=== PATIENT | male | born 1965 | race Hispanic/Latino ===

== ENCOUNTER → 2019-05-09 | Outpatient (CLI) | payer BC ==
--- NOTE | 2019-05-09 20:42 | Diagnostic Imaging Report ---
TECHNIQUE: Magnetic resonance imaging of the RIGHT HIP was performed WITHOUT injected contrast. HISTORY: Right hip pain COMPARISON: None available. FINDINGS: Bone: Heterogeneous bone marrow signal throughout the pelvis and proximal femurs. Bone marrow edema involving the bilateral femoral head neck junction extending across the physis scar. This is most prominent involving the lateral aspect of the right junction. The typical location of osteonecrosis within the femoral epiphysis is not present. Femoroacetabular Joint: Joint effusion. Acetabular labrum: Fraying of the labrum. Articular Cartilage: Partial-thickness cartilage loss Muscle and tendons: The gluteal tendons on the greater trochanter are intact. The iliopsoas tendon intact. The hamstring origins intact. Soft tissues: Otherwise unremarkable. IMPRESSION: Stress/insufficiency edema across the bilateral femoral head neck junction, greater on the right involving the lateral aspect. (Atypical appearance and location) No osteonecrosis within the expected location at the femoral epiphysis. Signed by: Dr. Mohinder Alcantara M.D. on 05/09/2019 8:38 PM
== END ==
LOC: MRI 13:16 → EDSEX 13:16
PROVIDERS: ATTEND Specialist
DX: M87.851 Other osteonecrosis, right femur (principal)

== ENCOUNTER → 2019-06-05 | Outpatient (CLI) | payer BC ==
--- NOTE | 2019-06-05 17:17 | Diagnostic Imaging Report ---
Bone Scan, three-phase Reason for exam: Right hip pain x 4 months Radiopharmaceutical: Tc-99m MDP 27.5 mCi IV RAC Comparison: MRI right hip 04/10/2019 Following intravenous administration of the radiopharmaceutical, dynamic flow images of the hips and blood pool images of the hips and knees followed by delayed total body and selected spot images were obtained. Flow and blood pool images show symmetric distribution of tracer activity to the bilateral hips and knees without abnormal focal uptake of tracer. The delayed images show decreased tracer activity in the right femoral head with increased tracer at the femoral head/neck junction and diffusely increased tracer in the hip. The left hip shows minimally decreased tracer activity in the left femoral head with mildly increased tracer at the femoral head/neck junction and less surrounding hyperemia in the hip compared to the right hip. Degenerative changes are seen in the mid thoracic and lower lumbar spine as well as in the knees and ankles, right ankle changes greater than in the left ankle. No abnormal accumulation of tracer is seen in the soft tissues or urinary tract. 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 Changes are more acute in the right hip compared to the left. Signed by: Dr. Sabra Kelley M.D. on 06/05/2019 5:13 PM
== END ==
LOC: NM 08:15
PROVIDERS: ATTEND Specialist
DX: M87.851 Other osteonecrosis, right femur (principal)
CPT/HCPCS: 78306; A9503

== ENCOUNTER 2019-07-29 08:00 | Observation (INO) | payer BC, OTHER ==
[2019-07-25 11:58] LABS: BASOPHILS % 0.1 % (0.0-1.0); EOSINOPHILS # (AUTO) 0.2 (0.0-0.4); EOSINOPHILS % 3.3 % (0.0-6.0); HEMATOCRIT 38.8 % (38.2-49.6); HEMOGLOBIN 12.9 g/dL (14.0-18.0); LYMPHOCYTES # (AUTO) 2.7 (1.0-3.2); LYMPHOCYTES % 40.7 % (18.0-39.1); MEAN CORPUSCULAR HEMOGLOBIN 28.9 pg (28-32); MEAN CORPUSCULAR HGB CONC 33.2 g/dL (31-35); MONOCYTES # (AUTO) 0.9 (0.2-0.8); MONOCYTES % 13.9 % (4.4-11.3); NEUTROPHILS # (AUTO) 2.8 (2.1-6.9); NEUTROPHILS % 41.6 % (38.7-80.0); PLATELET COUNT 253 x10e3/uL (140-360); RED BLOOD COUNT 4.46 x10e6/uL (4.3-5.7); RED CELL DISTRIBUTION WIDTH 13.2 % (11.7-14.4)
[~2019-07-29] VITALS: Ht 170.2 cm; Wt 113.9 kg
[2019-07-29] MEDS ORDERED: ACETAMINOPHEN325 M1 PO (08:26)
[2019-07-29] MEDS ORDERED: ULTRAM50 MG PO (08:26)
[2019-07-29] MEDS ORDERED: CEFAZOLIN SOD 1 GM/NS 50ML 100 ML IV ONE (08:35)
[2019-07-29] MEDS ORDERED: CELECOXIB 200 MG CAP ONE (09:12)
[2019-07-29] MEDS ORDERED: DEXAMETHASONE SOD PHOS 10 MG/1 ML VIAL ONE (09:12)
[2019-07-29] MEDS ORDERED: GABAPENTIN 300 MG CAP ONE (09:13)
[2019-07-29] MEDS ORDERED: BUPIVACAINE 7.5MG/ML /DEXTROSE 82.5MG/ML 2 ML AMP INJ ONE (09:22)
[2019-07-29] MEDS ORDERED: VANCOMYCIN HCL 1,000 MG ONE (09:46)
[2019-07-29] MEDS ORDERED: BACITRACIN 50,000 UNIT VIAL ONE (09:46)
[2019-07-29] MEDS ORDERED: TRANEXAMIC ACID 1,000 MG/10 ML ML ONE (09:47)
[2019-07-29] MEDS ORDERED: SODIUM CHLORIDE 0.9% 500ML 500 ML ONE (09:47)
[2019-07-29] MEDS ORDERED: HYDROCODONE/APAP 5MG-325MG TAB PO PRN (11:15)
[2019-07-29] MEDS ORDERED: DIPHENHYDRAMINE HCL INJ 50 MG/ML VIAL IV PRN (11:15)
[2019-07-29] MEDS ORDERED: ONDANSETRON HCL INJ 2MG/ML 2ML 2 MG/ML VIAL IV PRN (11:15)
[2019-07-29] MEDS ORDERED: ACETAMINOPHEN 650 MG SUPP PR PRN (11:15)
[2019-07-29] MEDS ORDERED: SODIUM CHLORIDE 0.9% 1000ML 1,000 ML IV SCH (11:15)
[2019-07-29] MEDS ORDERED: DOCUSATE SODIUM 100 MG CAP PO PRN (11:15)
[2019-07-29 13:40] VITALS: BP 104/75
--- NOTE | 2019-07-29 13:42 | NUR ---
PATIENT ARRIVED TO UNIT AT APPROXIMATELY 1330. AAOX3. ACYANOTIC. RESTING IN BED WITH ABDUCTION PILLOW BETWEEN LOWER EXTREMITIES. NO DISTRESS NOTED. CALL LIGHT IN REACH. SIDE RAILS UP X2. BED LOW. PATIENT DENIES PAIN. DRESSING TO RIGHT POSTERIOR SIDE OF HIP CLEAN, DRY, AND INTACT.
[2019-07-29 13:58] VITALS: BP 104/75
--- NOTE | 2019-07-29 14:03 | Diagnostic Imaging Report ---
EXAMINATION: PELVIS AP 1-2 VIEWS INDICATION: Postoperative COMPARISON: None FINDINGS: Portable AP view of the pelvis demonstrates immediate postoperative findings of right total hip replacement. Alignment appears anatomic. No unexpected fracture. Small amount of subcutaneous cutaneous soft tissue emphysema. Surgical skin sayda in place. Mild degenerative changes of the enterprise left hip joint. IMPRESSION: Anatomic alignment status post right total hip placement. Signed by: Chidi Chris MD on 07/29/2019 2:00 PM
[2019-07-29] MEDS ORDERED: ETOMIDATE 2 MG/ML 10 ML INJ IV ONE (14:54)
[2019-07-29] MEDS ORDERED: PROPOFOL IV EMULSION 10 MG/ML 20 ML VIAL ONE (14:54)
[2019-07-29] MEDS ORDERED: DEXAMETHASONE SOD PHOS INJ 4 MG/ML VIAL ONE (14:54)
[2019-07-29] MEDS ORDERED: ONDANSETRON HCL INJ 2MG/ML 2ML 2 MG/ML VIAL ONE (14:54)
[2019-07-29] MEDS: HYDROCODONE/APAP 7.5MG-325MG 1 EA TAB PO PRN ×2 (14:59→23:20)
[2019-07-29] MEDS ORDERED: ACETAMINOPHEN 1000 MG/100 ML IV PRN (15:00)
--- NOTE | 2019-07-29 15:10 | NUR ---
DR WATKINS OFFICE PREARRANGED FOLLOWING DISCHARGE PLAN OF: HOME [address] [facility], [address] HOME HEALTH WITH HOME CARE PROVIDERS CONFIRMED WITH [id number] DME 3 IN ONE COMMODE. AND ROLLING WALKER WITH WHEELS. PROVIDED BY [employer] [phone] KEISHA SIGNED AND ON CHART COPY LEFT WITH PATIENT GAVE CARD FOR QUESTIONS AND OR CONCERNS.
--- NOTE | 2019-07-29 15:35 | Operative Report ---
DATE OF PROCEDURE: 07/29/2019 SURGEON: Mark Horowitz MD DIE DRAWING CHECKER: Brian Herring, certified PA. PREOPERATIVE DIAGNOSIS: Avascular necrosis, right hip. POSTOPERATIVE DIAGNOSIS: Avascular necrosis, right hip. PROCEDURE: Right total hip arthroplasty, * added complexity secondary to BMI greater than 41. INDICATIONS: The patient is a 53-year-old gentleman, who has severe pain in his left hip. Clinic exam, x-rays and MRI are consistent with avascular necrosis. Treatment options have been discussed at length. We plan on a right total hip replacement. This was somewhat delayed because of the recent viral pandemic. He is anxious to proceed. We have gone over the implants, hospital stay, and recovery. He states he is ready to proceed. DESCRIPTION OF PROCEDURE: The patient was brought to the operating room and given a spinal anesthetic. He was positioned in the left lateral decubitus position. He received tranexamic acid and prophylactic antibiotics in the holding area. Throughout the case, added time and challenges were encountered due to his BMI of 42. His right hip was prepped and draped in a sterile manner. A preoperative time-out was performed. A posterior approach was made to the right hip. A more extensile incision was necessary due to this altered body habitus. Hemostasis was obtained with electrocautery. A deep Charnley self-retaining retractor was placed after incising the fascia. The posterior capsule was exposed. This was challenging due to the altered surgical field. Further hemostasis was obtained with electrocautery. A portion of the short external rotators and the posterior capsule were released. The hip was dislocated. Subchondral collapse was noted on the femoral head. An oscillating saw was used to resect the femoral head. Acetabular retractors were placed. Once again, added challenges were encountered due to the patient's size. The true floor of the acetabulum was ultimately established with a 46 mm reamer. Labral remnants were excised using a long-handled knife. The socket was sequentially reamed to 57 mm. This accomplished bleeding hemispherical cancellous bone. The hip was thoroughly irrigated with a shower tip pulsatile lavage. Additional irrigation was performed with a diluted mixture of polymyxin and vancomycin spray. A Jaskaran [employer] 58 mm OsseoTi socket was then impacted into place. A small amount of medial wall bone graft was placed prior to seating the socket. The fixation of the socket was good, but was augmented with a single 25 mm cancellous screw. A highly cross-linked polyethylene liner with a 36 mm inner diameter was then impacted into place. Care was taken to make sure that there was no evidence of soft tissue interposition. The socket was packed with a moistly-soaked lap sponge and attention was directed towards the proximal femur. Yet again, challenges were encountered due to the patient's bulky muscle mass and body habitus. The Taperloc broaches were impacted. A size 14 stem had good canal fill and stability for trial reduction. A standard 36 mm head provided appropriate oriental orthodox of limb length, soft tissue balancing, and stability throughout a full arc of motion. The trial implants were then removed. The hip was further irrigated. A 100 mL premixed pericapsular JULIAN injection was placed into the surrounding soft tissue. The Taperloc stem was impacted into place. A 36 mm ceramic head and standard neck were seated onto the stem after it was cleaned and dried. A final reduction was performed. The posterior capsule was repaired with #2 Ethibond. The piriformis tendon was repaired with #2 Ethibond. A 500 mg of vancomycin powder was sprinkled into the deep wound. The fascia was closed with interrupted #2 Ethibond. The skin was closed with subcuticular Vicryl and sayda. A sterile bandage was applied. The patient was returned to the supine position. He was transported to the recovery room in stable condition. Estimated blood loss was 150 mL. All needle and sponge counts were correct. Mark Horowitz MD DR/MARV /[id number]
[2019-07-29] MEDS: CELECOXIB 100 MG CAP PO SCH (16:23)
[2019-07-29] MEDS: ASPIRIN 325 MG TAB PO SCH (16:23)
[2019-07-29] MEDS: CEFAZOLIN SOD 1 GM/NS 50ML 50 ML IV SCH (17:40)
--- NOTE | 2019-07-29 18:05 | Consultation ---
DATE OF CONSULTATION: 07/29/2019 Medicine Consultation REASON FOR CONSULTATION: Medical management. HISTORY OF PRESENT ILLNESS: This is a 53-year-old man, who presented to [facility] Emergency room with diagnosis of advanced right hip degenerative joint disease. Today, the patient underwent successful right total hip arthroplasty performed by Dr. Mark Horowitz. The patient voiced no complaints. The patient states pain is well controlled. REVIEW OF SYSTEMS: GENERAL: Weight is stable. No fever or chills. HEENT: No headaches. No visual changes. CARDIOVASCULAR/RESPIRATORY: No chest pain. No short of breath or cough. GI: No nausea, vomiting, or diarrhea. : Horn catheter has been removed. NEUROMUSCULAR: The patient states his right hip pain is well controlled. ALLERGIES: NO KNOWN DRUG ALLERGIES. FAMILY HISTORY: Noncontributory. SOCIAL HISTORY: He is and lives with his . He is employed as a construction pipe worker. He smokes tobacco sporadically and drinks alcohol socially. PAST SURGICAL HISTORY: 1. Right total hip arthroplasty today. 2. Laparoscopic cholecystectomy. 3. Appendectomy. HOME MEDICATIONS: 1. Tramadol 50 mg every 4 hours p.r.n. pain. 2. Acetaminophen 325 mg every 6 hours p.r.n. pain. PAST MEDICAL HISTORY: 1. Obesity, BMI 39. 2. Right hip degenerative joint disease. PHYSICAL EXAMINATION: GENERAL: He is awake, alert, fully oriented and in no distress, very pleasant and cooperative. VITAL SIGNS: Height is 5 feet 7 inches, weighs 250 pounds, BMI 39. Blood pressure is 104/74, pulse 74, respiratory rate 18, oxygen saturation 96% on room air, and temperature 97.6. INTEGUMENT: Skin is warm dry. No pallor, jaundice, or diaphoresis. HEENT: Anicteric sclerae with moist mucous membranes. NECK: Supple. CARDIOVASCULAR: Regular rate and rhythm. LUNGS: No rales. No rhonchi. No wheezes. ABDOMEN: Soft. Normal bowel sounds, nontender. EXTREMITIES: No edema or deformity. SCD's on lower legs. NEUROLOGIC: No focal deficits appreciated. DIAGNOSES: 1. Status post right total hip arthroplasty. 2. Obesity, BMI 39. PLAN: 1. Discontinue intravenous fluids. 2. Mobilize patient. 3. Encourage incentive spirometer use to prevent atelectasis. 4. Pain control. I would like to thank Dr. Mark Horowitz for this generous consult. I spent 30 minutes in the care of this patient. MD TONY Zaldivar/MARV /[id number]
[2019-07-29 18:06] VITALS: BP 96/57
--- NOTE | 2019-07-29 19:00 | NUR ---
Received the patient in report.lyeing in the bed.abduction pillow in place.stable condition.
[2019-07-29 20:00] VITALS: BP 148/82
[2019-07-29 20:20] VITALS: BP 148/82
[2019-07-29] MEDS ORDERED: ZOLPIDEM TARTRATE 5 MG TAB PO PRN (21:00)
[2019-07-30] VITALS: BP 124/74
--- NOTE | 2019-07-30 01:12 | NUR ---
AMBULATES TO REST ROOM.VOIDED.USES ICS.DRESSING TO RIGHT HIP IS DRY .STABLE CONDITION.
[2019-07-30] MEDS: CEFAZOLIN SOD 1 GM/NS 50ML 50 ML IV SCH ×2 (02:24→11:00)
[2019-07-30 04:00] VITALS: BP 120/75
--- NOTE | 2019-07-30 04:10 | NUR ---
New iv started to right hand #22 g patent.patient tolerated well.
[2019-07-30] MEDS: KETOROLAC TROMETHAMINE 30 MG/ML VIAL IV PRN ×2 (04:39→11:19)
[2019-07-30 05:04] LABS: HEMATOCRIT 34.2 % (38.2-49.6); HEMOGLOBIN 11.6 g/dL (14.0-18.0)
--- NOTE | 2019-07-30 07:05 | NUR ---
Bed side shift report given to oncoming Rn.stable condition.
--- NOTE | 2019-07-30 07:28 | NUR ---
AAOX3. ASSUMED CARE. ACYANOTIC. RESTING IN BED. NO DISTRESS NOTED. CALL LIGHT IN REACH. SIDE RAILS UP X2. BED LOW.
[2019-07-30 08:02] VITALS: BP 131/93
[2019-07-30 08:07] VITALS: BP 131/93
[2019-07-30] MEDS: CELECOXIB 100 MG CAP PO SCH (08:43)
[2019-07-30] MEDS: ASPIRIN 325 MG TAB PO SCH (08:43)
[2019-07-30] MEDS: HYDROCODONE/APAP 7.5MG-325MG 1 EA TAB PO PRN (08:44)
--- NOTE | 2019-07-30 09:18 | Progress Note ---
DATE: 07/30/2019 CHIEF COMPLAINT/HISTORY OF PRESENT ILLNESS: This is a 53-year-old man, who initially presented to [facility] with diagnosis of advanced right hip osteoarthritis. The patient underwent successful right total hip arthroplasty yesterday on Monday, July 29, 2019. The patient currently voiced no complaints. The patient states his pain is well controlled. Hemoglobin today is 11.6 g/dL. REVIEW OF SYSTEMS: As per HPI. PHYSICAL EXAMINATION: GENERAL: He is awake, alert, fully oriented and in no distress, very pleasant. VITAL SIGNS: Blood pressure 130/90, pulse 98, respiratory rate is 18, temperature is 99.1, and oxygen saturation 99% on room air. Calculated is BMI 39. INTEGUMENT: Skin is warm and dry. No pallor, jaundice, or diaphoresis. HEENT: Anicteric sclerae with moist mucous membranes. NECK: Supple. CARDIOVASCULAR: Distant heart sounds. Tachycardic rate with regular rhythm. LUNGS: No rales. No rhonchi. ABDOMEN: Mildly obese. Benign. EXTREMITIES: Right hip surgical incision is currently dressed, but when uncovered, it is clean, dry, and intact. No edema in legs. He is wearing sequential compression devices on his lower legs. NEUROLOGIC: Intact. No gross deficits appreciated. DIAGNOSES: 1. Status post right total hip arthroplasty. 2. Obesity, BMI of 39. PLAN: 1. The patient is medically stable for discharge today. 2. Mobilize therapy. 3. Recommend the patient continue incentive spirometer usage to help prevent atelectasis. 4. The patient to take aspirin twice a day as prescribed by his orthopedic surgeon for deep venous thrombosis prophylaxis for the next 3 weeks. 5. Recommend to the patient to lose at least 20 pounds, which will likely help further prevent any left hip joint degeneration in the future. I spent 25 minutes in the care of this patient. MD TONY Zaldivar/MARV /[id number]
[2019-07-30 11:34] VITALS: BP 125/75
[2019-07-30] MEDS ORDERED: ONDANSETRON HCL 4 MG ORAL DISINTEGRATING TAB PO PRN (13:30)
--- NOTE | 2019-07-30 13:36 | NUR ---
AAOX3. ACYANOTIC. PATIENT SIGNED DISCHARGE PAPERWORK. CURRENTLY SITTING IN CHAIR WAITING ON RIDE FROM THE HOSPITAL. INSTRUCTED TO CALL FOR ASSISTANCE. VERBALIZED UNDERSTANDING. NO DISTRESS NOTED. IV DISCONTINUED AT 1334.
[2019-07-30] MEDS ORDERED: CELECOXIB 200 MG CAP PO SCH (17:00)
== END 2019-07-30 14:50 | disposition home or self-care (01) ==
LOC: OR 08:00 → PACU V 11:15 → MED/SURG 13:24
PROVIDERS: ADMIT Specialist; ATTEND Specialist
DX: M87.851 Other osteonecrosis, right femur (principal); E66.01 Morbid (severe) obesity due to excess calories; Z90.49 Acquired absence of other specified parts of digestive tract; F17.210 Nicotine dependence, cigarettes, uncomplicated; Z68.39 Body mass index [BMI] 39.0-39.9, adult; Z01.810 Encounter for preprocedural cardiovascular examination; Z01.812 Encounter for preprocedural laboratory examination; Z11.59 Encounter for screening for other viral diseases
CPT/HCPCS: 27130; 36415 ×2; 72170; 85014; 85018; 85025; 86850; 86900; 86920 ×2; 87635; 93005; 96360; 97110; 97116 ×3; 97161; 97530 ×2; G0378 ×2; J0690 ×2; J1100 ×2; J1885; J2405; J2704; J3370; J7030; J7040

== ENCOUNTER 2020-01-26 07:23 | Observation (INO) | payer BC ==
[~2020-01-26 07:23] MED LIST: ACETAMINOPHEN325 M1 PO; METFORMIN HCL500 MG PO; ULTRAM50 MG PO
[2020-01-26] MEDS ORDERED: CELECOXIB 200 MG CAP ONE (07:54)
[2020-01-26] MEDS ORDERED: CEFAZOLIN SOD 1 GM/NS 50ML 100 ML IV ONE (07:55)
[2020-01-26] MEDS ORDERED: DEXAMETHASONE SOD PHOS 10 MG/1 ML VIAL ONE (07:55)
[2020-01-26] MEDS ORDERED: GABAPENTIN 300 MG CAP ONE (07:55)
[2020-01-26] MEDS ORDERED: BUPIVACAINE 7.5MG/ML /DEXTROSE 82.5MG/ML 2 ML AMP INJ ONE (07:58)
[2020-01-26] MEDS ORDERED: ROPIVACAINE 246.25 MG, EPINEPHRINE HCL 1:1000 1ML 0.5 MG, CLONIDINE HCL 0.08 MG, KETORO... INJ ONE ×5 (08:00)
[2020-01-26] MEDS ORDERED: FENOFIBRATE145 MG PO (08:31)
[2020-01-26 08:42] LABS: BASOPHILS % 0.4 % (0.0-1.0); EOSINOPHILS # (AUTO) 0.2 (0.0-0.4); EOSINOPHILS % 1.8 % (0.0-6.0); HEMATOCRIT 41.4 % (38.2-49.6); HEMOGLOBIN 13.8 g/dL (14.0-18.0); LYMPHOCYTES # (AUTO) 3.3 (1.0-3.2); LYMPHOCYTES % 38.8 % (18.0-39.1); MEAN CORPUSCULAR HEMOGLOBIN 28.1 pg (28-32); MEAN CORPUSCULAR HGB CONC 33.3 g/dL (31-35); MEAN CORPUSCULAR VOLUME 84.3 fL (81-99); MONOCYTES # (AUTO) 0.8 (0.2-0.8); MONOCYTES % 8.8 % (4.4-11.3); NEUTROPHILS # (AUTO) 4.2 (2.1-6.9); NEUTROPHILS % 49.7 % (38.7-80.0); PLATELET COUNT 256 x10e3/uL (140-360); RED BLOOD COUNT 4.91 x10e6/uL (4.3-5.7)
[2020-01-26] MEDS ORDERED: TRANEXAMIC ACID 1,000 MG/10 ML ML ONE (08:57)
[2020-01-26] MEDS ORDERED: VANCOMYCIN HCL 1,000 MG ONE (08:57)
[2020-01-26] MEDS ORDERED: SODIUM CHLORIDE 0.9% 500ML 500 ML ONE (08:58)
[2020-01-26 08:59] LABS: ANION GAP 14.7 mmol/L (8-16); BLOOD UREA NITROGEN 16 mg/dL (7-26); BUN/CREATININE RATIO 21 (6-25); CALCIUM 9.1 mg/dL (8.4-10.2); CARBON DIOXIDE 24 mmol/L (22-29); CHLORIDE 104 mmol/L (98-107); CREATININE, SERUM 0.77 mg/dL (0.72-1.25); EST GLOMERULAR FILTRATION RATE > 60 ML/MIN (60-); GLUCOSE 91 mg/dL (74-118); POTASSIUM 4.7 mmol/L (3.5-5.1); SODIUM 138 mmol/L (136-145)
[2020-01-26] MEDS ORDERED: ACETAMINOPHEN 650 MG SUPP PR PRN (11:15)
[2020-01-26] MEDS ORDERED: KETOROLAC TROMETHAMINE 30 MG/ML VIAL IV PRN (11:15)
[2020-01-26] MEDS ORDERED: DIPHENHYDRAMINE HCL INJ 50 MG/ML VIAL IV PRN (11:15)
[2020-01-26] MEDS ORDERED: ONDANSETRON HCL INJ 2MG/ML 2ML 2 MG/ML VIAL IV PRN (11:15)
[2020-01-26] MEDS ORDERED: HYDROCODONE/APAP 7.5MG-325MG 1 EA TAB PO PRN (11:15)
[2020-01-26] MEDS ORDERED: HYDROCODONE/APAP 5MG-325MG TAB PO PRN (11:15)
[2020-01-26] MEDS ORDERED: DOCUSATE SODIUM 100 MG CAP PO PRN (11:15)
[2020-01-26 13:30] VITALS: BP 111/72
[2020-01-26] MEDS ORDERED: ACETAMINOPHEN 1000 MG/100 ML IV PRN (15:00)
[2020-01-26] MEDS ORDERED: SODIUM CHLORIDE 0.9% 250ML 250 ML ONE (16:18)
[2020-01-26 16:30] VITALS: BP 130/84
[2020-01-26] MEDS: CEFAZOLIN SOD 1 GM/NS 50ML 50 ML IV SCH (16:38)
[2020-01-26] MEDS: ASPIRIN 325 MG TAB PO SCH (16:38)
[2020-01-26] MEDS: CELECOXIB 100 MG CAP PO SCH (16:38)
[2020-01-26 19:18] VITALS: BP 131/73
[2020-01-26] MEDS ORDERED: DEXTROSE 50% SYRINGE 50 ML IV PRN (19:45)
[2020-01-26] MEDS ORDERED: ZOLPIDEM TARTRATE 5 MG TAB PO PRN (21:00)
[2020-01-26] MEDS ORDERED: FENOFIBRATE 48 MG TAB PO SCH (21:00)
[2020-01-26] MEDS: INSULIN REGULAR, HUMAN 100 UNIT/1 ML 3ML VIAL SQ SCH (21:18)
[2020-01-26 21:49] VITALS: BP 131/73
[2020-01-27] VITALS (7 sets, daily range): BP systolic 125–143; BP diastolic 82–90
[2020-01-27] MEDS: CEFAZOLIN SOD 1 GM/NS 50ML 50 ML IV SCH ×2 (00:17→08:22)
[2020-01-27 05:14] LABS: BASOPHILS % 0.1 % (0.0-1.0); HEMATOCRIT 36.8 % (38.2-49.6); HEMOGLOBIN 12.2 g/dL (14.0-18.0); LYMPHOCYTES # (AUTO) 2.1 (1.0-3.2); LYMPHOCYTES % 15.3 % (18.0-39.1); MEAN CORPUSCULAR HEMOGLOBIN 27.7 pg (28-32); MEAN CORPUSCULAR HGB CONC 33.2 g/dL (31-35); MEAN CORPUSCULAR VOLUME 83.6 fL (81-99); MONOCYTES # (AUTO) 1.3 (0.2-0.8); MONOCYTES % 9.4 % (4.4-11.3); NEUTROPHILS # (AUTO) 10.3 (2.1-6.9); NEUTROPHILS % 74.6 % (38.7-80.0); PLATELET COUNT 247 x10e3/uL (140-360); RED CELL DISTRIBUTION WIDTH 14.1 % (11.7-14.4)
[2020-01-27 05:35] LABS: ALANINE AMINOTRANSFERASE 24 IU/L (0-55); ALBUMIN 3.8 g/dL (3.5-5.0); ALBUMIN/GLOBULIN RATIO 1.2 (0.8-2.0); ALKALINE PHOSPHATASE 82 IU/L (40-150); ANION GAP 16.2 mmol/L (8-16); BLOOD UREA NITROGEN 18 mg/dL (7-26); BUN/CREATININE RATIO 21 (6-25); CALCIUM 9.4 mg/dL (8.4-10.2); CARBON DIOXIDE 22 mmol/L (22-29); CHLORIDE 103 mmol/L (98-107); CREATININE, SERUM 0.84 mg/dL (0.72-1.25); EST GLOMERULAR FILTRATION RATE > 60 ML/MIN (60-); GLUCOSE 135 mg/dL (74-118); POTASSIUM 4.2 mmol/L (3.5-5.1); SODIUM 137 mmol/L (136-145)
[2020-01-27] MEDS: INSULIN REGULAR, HUMAN 100 UNIT/1 ML 3ML VIAL SQ SCH (07:30)
[2020-01-27] MEDS: ASPIRIN 325 MG TAB PO SCH (08:22)
[2020-01-27] MEDS: CELECOXIB 100 MG CAP PO SCH (08:23)
== END 2020-01-27 12:27 | disposition home health service (06) ==
LOC: OR 07:23 → PACU V 11:07 → IMCU 13:30
PROVIDERS: ADMIT Specialist; ATTEND Specialist
DX: M87.852 Other osteonecrosis, left femur (principal); E66.01 Morbid (severe) obesity due to excess calories; Z68.41 Body mass index [BMI] 40.0-44.9, adult; Z20.828 Contact with and (suspected) exposure to other viral communicable diseases; M16.0 Bilateral primary osteoarthritis of hip
CPT/HCPCS: 27130; 36415 ×2; 72170; 80048; 80053; 82948; 85025 ×2; 86850; 86900; 86920; 93005; 96367; 96372 ×2; 96376; 97116 ×2; 97161; 97530; G0378 ×2; J0171; J0690 ×2; J1100; J1817; J1885 ×2; J2795; J3370; J7040; J7050; U0002

== ENCOUNTER → 2020-07-26 | Day surgery (SDC) | payer BC ==
[2020-07-22 10:47] LABS: ANION GAP 11.2 mmol/L (8-16); BLOOD UREA NITROGEN 25 mg/dL (7-26); BUN/CREATININE RATIO 34 (6-25); CALCIUM 9.1 mg/dL (8.4-10.2); CARBON DIOXIDE 26 mmol/L (22-29); CHLORIDE 105 mmol/L (98-107); CREATININE, SERUM 0.73 mg/dL (0.72-1.25); EST GLOMERULAR FILTRATION RATE > 60 ML/MIN (60-); GLUCOSE 89 mg/dL (74-118); POTASSIUM 4.2 mmol/L (3.5-5.1); SODIUM 138 mmol/L (136-145)
[~2020-07-26] MED LIST changes: +BUPIVACAINE HCL 0.5% INJ 30 ML VIAL INJ ONE; +FENOFIBRATE145 MG PO; +FENTANYL CITRATE/PF 100MCG/2 ML INJ ONE; +IBUPROFEN800 MG PO; +IOPAMIDOL 300MG/ML 50ML INFUS..BTL IV ONE; +LIDOCAINE HCL 1% LOCAL INJ 20 ML VIAL ONE; +LIDOCAINE HCL 2% LOCAL INJ 5 ML SDV VIAL INJ ONE; +POVIDONE IODINE 0.05% 0.05 % ML PO ONE; +PROPOFOL IV EMULSION 10 MG/ML 20 ML VIAL ONE; +TRIAMCINOLONE ACET 40 MG/ML VIAL ONE
[2020-07-26 07:35] VITALS: BP 113/74
[2020-07-26 11:33] LABS: BODY FLUID TYPE SYNOVIAL
[2020-07-26 11:34] LABS: BODY FLUID APPEARANCE CLOUDY; BODY FLUID COLOR RED; WBC,BODY FLUID 94426 cells/uL
[2020-07-26 11:39] LABS: RBC,BODY FLUID 99000 cells/uL
[2020-07-26 12:48] LABS: LYMPHOCYTES,BODY FLUID 3 %; MONO/MACROPHG,BODY FLUID 3 %; NEUTROPHILS,BODY FLUID 94 %
== END | disposition home or self-care (01) ==
LOC: OR 05:33
PROVIDERS: ATTEND Specialist
DX: T84.52XA Infection and inflammatory reaction due to internal left hip prosthesis, initial encounter (principal); E11.9 Type 2 diabetes mellitus without complications; R00.1 Bradycardia, unspecified; F17.200 Nicotine dependence, unspecified, uncomplicated; Y83.8 Other surgical procedures as the cause of abnormal reaction of the patient, or of later complication, without mention of misadventure at the time of the procedure; Z01.810 Encounter for preprocedural cardiovascular examination; Z01.812 Encounter for preprocedural laboratory examination; Z20.822 Contact with and (suspected) exposure to COVID-19; Z79.84 Long term (current) use of oral hypoglycemic drugs; Z68.35 Body mass index [BMI] 35.0-35.9, adult
CPT/HCPCS: 20610; 36415 ×2; 77002; 80048; 82948; 87071; 87075; 87116; 87186; 87205; 87206; 89051; 93005; J2001; J2704; J3010; U0002; J3301

== ENCOUNTER 2020-08-24 08:01 | Inpatient (IN) | payer BC ==
[2020-08-20 10:16] LABS: BASOPHILS % 0.3 % (0.0-1.0); EOSINOPHILS # (AUTO) 0.2 (0.0-0.4); EOSINOPHILS % 2.2 % (0.0-6.0); HEMOGLOBIN 12.2 g/dL (14.0-18.0); LYMPHOCYTES % 33.2 % (18.0-39.1); MEAN CORPUSCULAR HEMOGLOBIN 27.4 pg (28-32); MEAN CORPUSCULAR HGB CONC 32.1 g/dL (31-35); MEAN CORPUSCULAR VOLUME 85.4 fL (81-99); MONOCYTES # (AUTO) 0.8 (0.2-0.8); MONOCYTES % 8.4 % (4.4-11.3); NEUTROPHILS # (AUTO) 5.1 (2.1-6.9); NEUTROPHILS % 55.6 % (38.7-80.0); PLATELET COUNT 281 x10e3/uL (140-360); RED BLOOD COUNT 4.45 x10e6/uL (4.3-5.7); RED CELL DISTRIBUTION WIDTH 13.7 % (11.7-14.4)
[2020-08-20 10:45] LABS: ANION GAP 15.1 mmol/L (8-16); CALCIUM 9.4 mg/dL (8.4-10.2); CREATININE, SERUM 0.76 mg/dL (0.72-1.25); POTASSIUM 4.1 mmol/L (3.5-5.1)
[~2020-08-24] VITALS: Ht 170.2 cm; Wt 103.9 kg
[~2020-08-24 08:01] MED LIST changes: +ATORVASTATIN CA20 MG PO; -BUPIVACAINE HCL 0.5% INJ 30 ML VIAL INJ ONE; -FENTANYL CITRATE/PF 100MCG/2 ML INJ ONE; -IOPAMIDOL 300MG/ML 50ML INFUS..BTL IV ONE; -LIDOCAINE HCL 1% LOCAL INJ 20 ML VIAL ONE; -LIDOCAINE HCL 2% LOCAL INJ 5 ML SDV VIAL INJ ONE; -POVIDONE IODINE 0.05% 0.05 % ML PO ONE; -PROPOFOL IV EMULSION 10 MG/ML 20 ML VIAL ONE; -TRIAMCINOLONE ACET 40 MG/ML VIAL ONE
[2020-08-24] MEDS ORDERED: ROPIVACAINE 246.25 MG, EPINEPHRINE HCL 1:1000 1ML 0.5 MG, CLONIDINE HCL 0.08 MG, KETORO... INJ ONE ×5 (08:30)
[2020-08-24] MEDS ORDERED: GABAPENTIN 300 MG CAP ONE (09:20)
[2020-08-24] MEDS ORDERED: Vancomycin IV 1 GM VIAL ONE (09:20)
[2020-08-24] MEDS ORDERED: CELECOXIB 200 MG CAP ONE (09:20)
[2020-08-24] MEDS ORDERED: DEXAMETHASONE SOD PHOS 10 MG/1 ML VIAL ONE (09:20)
[2020-08-24] MEDS ORDERED: SODIUM CHLORIDE 0.9% 250ML 250 ML ONE (09:20)
[2020-08-24] MEDS ORDERED: TRANEXAMIC ACID 1,000 MG/10 ML ML ONE (10:13)
[2020-08-24] MEDS ORDERED: SODIUM CHLORIDE 0.9% 500ML 500 ML ONE (10:13)
[2020-08-24] MEDS ORDERED: Vancomycin IV 500 MG ONE (10:13)
[2020-08-24] MEDS ORDERED: LIDOCAINE HCL 2% LOCAL INJ 5 ML SDV VIAL INJ ONE (11:42)
[2020-08-24] MEDS ORDERED: PROPOFOL IV EMULSION 10 MG/ML 20 ML VIAL ONE (11:42)
[2020-08-24] MEDS ORDERED: POVIDONE IODINE 0.05% 0.05 % ML PO ONE (11:42)
[2020-08-24] MEDS ORDERED: SEVOFLURANE INHAL SOLN 250 ML PEN BTL ONE (11:42)
[2020-08-24] MEDS ORDERED: ONDANSETRON HCL INJ 2MG/ML 2ML 2 MG/ML VIAL ONE (11:42)
[2020-08-24] MEDS ORDERED: DEXAMETHASONE SOD PHOS INJ 4 MG/ML VIAL ONE (11:42)
[2020-08-24] MEDS ORDERED: NEOSTIGMINE 1 MG/ML 10ML VIAL ONE (11:42)
[2020-08-24] MEDS ORDERED: ROCURONIUM BROMIDE 10 MG/ML 5ML VIAL IV ONE (11:42)
[2020-08-24] MEDS ORDERED: GLYCOPYRROLATE INJ 0.2 MG/ML VIAL ONE (11:42)
[2020-08-24] MEDS ORDERED: DOCUSATE SODIUM 100 MG CAP PO PRN ×2 (13:00→14:45)
[2020-08-24] MEDS ORDERED: HYDROCODONE/APAP 5MG-325MG TAB PO PRN (13:00)
[2020-08-24] MEDS ORDERED: DIPHENHYDRAMINE HCL INJ 50 MG/ML VIAL IV PRN (13:00)
[2020-08-24] MEDS ORDERED: KETOROLAC TROMETHAMINE 30 MG/ML VIAL IV PRN (13:00)
[2020-08-24] MEDS ORDERED: ACETAMINOPHEN 650 MG SUPP PR PRN (13:00)
[2020-08-24] MEDS ORDERED: ONDANSETRON HCL INJ 2MG/ML 2ML 2 MG/ML VIAL IV PRN (13:00)
[2020-08-24] MEDS ORDERED: FENTANYL CITRATE/PF 100MCG/2 ML INJ ONE ×2 (13:37→13:51)
[2020-08-24] MEDS ORDERED: HYDROMORPHONE 1MG/1ML INJ ONE ×2 (13:47→14:13)
[2020-08-24] MEDS ORDERED: MIDAZOLAM HCL 2 MG/2 ML VIAL ONE (13:51)
[2020-08-24 14:38] VITALS: BP 119/63
[2020-08-24 14:42] VITALS: BP 119/63
[2020-08-24] MEDS ORDERED: ACETAMINOPHEN 325 MG TAB PO PRN (14:45)
[2020-08-24] MEDS ORDERED: SIMETHICONE 80 MG CHEW PO PRN (14:45)
[2020-08-24] MEDS ORDERED: LIDOCAINE 4% PATCH TP PRN (14:45)
[2020-08-24] MEDS ORDERED: BENZONATATE 100 MG CAP PO PRN (14:45)
[2020-08-24] MEDS ORDERED: DEXTROSE 50% SYRINGE 50 ML IV PRN ×2 (14:45)
[2020-08-24] MEDS ORDERED: POTASSIUM CHLORIDE 20 MEQ TAB CR PO PRN (14:45)
[2020-08-24] MEDS ORDERED: HYDRALAZINE HCL 20 MG/ML VIAL IV PRN (14:45)
[2020-08-24] MEDS ORDERED: DIPHENHYDRAMINE HCL 25 MG CAP PO PRN (14:45)
[2020-08-24] MEDS: SODIUM CHLORIDE 0.9% 1000ML 1,000 ML IV SCH ×2 (15:30→23:00)
[2020-08-24] MEDS: HYDROCODONE/APAP 7.5MG-325MG 1 EA TAB PO PRN ×2 (15:50→23:27)
[2020-08-24 16:06] VITALS: BP 106/70
[2020-08-24] MEDS ORDERED: CELECOXIB 100 MG CAP PO SCH (17:00)
[2020-08-24] MEDS: ASPIRIN 325 MG TAB PO SCH (17:09)
[2020-08-24] MEDS ORDERED: ACETAMINOPHEN 1000 MG/100 ML IV PRN (18:00)
[2020-08-24 20:00] VITALS: BP 122/73
[2020-08-24] MEDS ORDERED: MELATONIN 5 MG TABLET PO PRN (21:00)
[2020-08-24] MEDS ORDERED: ZOLPIDEM TARTRATE 5 MG TAB PO PRN (21:00)
[2020-08-24 21:39] VITALS: BP 122/73
[2020-08-24] MEDS: Vancomycin IV 1 GM in SODIUM CHLORIDE 0.9% 250ML 250 ML IV SCH (23:21)
[2020-08-25] VITALS (7 sets, daily range): BP systolic 95–125; BP diastolic 60–77
[2020-08-25] MEDS: SODIUM CHLORIDE 0.9% 1000ML 1,000 ML IV SCH (03:43)
[2020-08-25 05:46] LABS: BASOPHILS % 0.2 % (0.0-1.0); EOSINOPHILS % 0.1 % (0.0-6.0); HEMATOCRIT 29.4 % (38.2-49.6); HEMOGLOBIN 9.5 g/dL (14.0-18.0); LYMPHOCYTES # (AUTO) 1.9 (1.0-3.2); LYMPHOCYTES % 18.1 % (18.0-39.1); MEAN CORPUSCULAR HEMOGLOBIN 27.7 pg (28-32); MEAN CORPUSCULAR HGB CONC 32.3 g/dL (31-35); MEAN CORPUSCULAR VOLUME 85.7 fL (81-99); MONOCYTES # (AUTO) 1.1 (0.2-0.8); MONOCYTES % 10.9 % (4.4-11.3); NEUTROPHILS # (AUTO) 7.2 (2.1-6.9); NEUTROPHILS % 70.4 % (38.7-80.0); PLATELET COUNT 222 x10e3/uL (140-360); RED BLOOD COUNT 3.43 x10e6/uL (4.3-5.7); RED CELL DISTRIBUTION WIDTH 13.7 % (11.7-14.4)
[2020-08-25 06:37] LABS: ALBUMIN 3.3 g/dL (3.5-5.0); ANION GAP 13.1 mmol/L (8-16); CALCIUM 8.4 mg/dL (8.4-10.2); CREATININE, SERUM 0.74 mg/dL (0.72-1.25); POTASSIUM 4.1 mmol/L (3.5-5.1)
[2020-08-25] MEDS: PANTOPRAZOLE SOD 40 MG TABEC PO SCH (08:10)
[2020-08-25] MEDS: CELECOXIB 200 MG CAP PO SCH ×2 (09:10→17:31)
[2020-08-25] MEDS: ASPIRIN 325 MG TAB PO SCH ×2 (09:10→17:31)
[2020-08-25] MEDS ORDERED: ONDANSETRON HCL 4 MG ORAL DISINTEGRATING TAB PO PRN (09:30)
[2020-08-25] MEDS: HYDROCODONE/APAP 7.5MG-325MG 1 EA TAB PO PRN ×4 (09:35→23:50)
[2020-08-25] MEDS: Vancomycin IV 1 GM in SODIUM CHLORIDE 0.9% 250ML 250 ML IV SCH ×2 (10:58→23:38)
[2020-08-25] MEDS: RIFAMPIN 300 MG CAP PO SCH (17:37)
[2020-08-26] VITALS: BP 116/71
[2020-08-26 04:00] VITALS: BP 116/70
[2020-08-26] MEDS: HYDROCODONE/APAP 7.5MG-325MG 1 EA TAB PO PRN ×2 (05:46→09:52)
[2020-08-26 06:07] LABS: BASOPHILS % 0.3 % (0.0-1.0); EOSINOPHILS # (AUTO) 0.1 (0.0-0.4); EOSINOPHILS % 1.2 % (0.0-6.0); HEMATOCRIT 26.8 % (38.2-49.6); HEMOGLOBIN 8.3 g/dL (14.0-18.0); LYMPHOCYTES # (AUTO) 2.9 (1.0-3.2); LYMPHOCYTES % 39.2 % (18.0-39.1); MEAN CORPUSCULAR HEMOGLOBIN 27.1 pg (28-32); MEAN CORPUSCULAR VOLUME 87.6 fL (81-99); MONOCYTES # (AUTO) 0.7 (0.2-0.8); MONOCYTES % 9.6 % (4.4-11.3); NEUTROPHILS # (AUTO) 3.7 (2.1-6.9); NEUTROPHILS % 49.3 % (38.7-80.0); PLATELET COUNT 176 x10e3/uL (140-360); RED BLOOD COUNT 3.06 x10e6/uL (4.3-5.7); RED CELL DISTRIBUTION WIDTH 14.2 % (11.7-14.4)
[2020-08-26 06:30] LABS: ALBUMIN 3.1 g/dL (3.5-5.0); ALBUMIN/GLOBULIN RATIO 1.1 (0.8-2.0); ANION GAP 11.8 mmol/L (8-16); CALCIUM 8.1 mg/dL (8.4-10.2); CREATININE, SERUM 0.65 mg/dL (0.72-1.25); POTASSIUM 3.8 mmol/L (3.5-5.1)
[2020-08-26 07:32] VITALS: BP 106/69
[2020-08-26] MEDS: ASPIRIN 325 MG TAB PO SCH ×2 (08:56→15:23)
[2020-08-26] MEDS: CELECOXIB 200 MG CAP PO SCH ×2 (08:56→15:23)
[2020-08-26] MEDS: RIFAMPIN 300 MG CAP PO SCH (08:56)
[2020-08-26] MEDS: PANTOPRAZOLE SOD 40 MG TABEC PO SCH (08:56)
[2020-08-26 09:04] VITALS: BP 106/69
[2020-08-26 11:19] VITALS: BP 103/74
[2020-08-26] MEDS ORDERED: SODIUM CHLORIDE 0.9% 250ML 250 ML ONE (11:35)
[2020-08-26] MEDS: Vancomycin IV 1 GM in SODIUM CHLORIDE 0.9% 250ML 250 ML IV SCH (12:11)
[2020-08-26] MEDS ORDERED: DAPTOMYCIN 500mg 10ML 500 MG in SODIUM CHLORIDE 0.9% 100 ML IV ONE (15:00)
[2020-08-26 15:26] VITALS: BP 103/57
== END 2020-08-26 18:00 | disposition home or self-care (01) | DRG 466 ==
LOC: OR 08:01 → PACU V 12:58 → MED/SURG 15:20
PROVIDERS: ADMIT Specialist; ATTEND Specialist
PROC: 02HV33Z Insertion of Infusion Device into Superior Vena Cava, Percutaneous Approach (ICD-10-PCS; 2020-08-24)
PROC: 0SPB0JZ Removal of Synthetic Substitute from Left Hip Joint, Open Approach (ICD-10-PCS; principal; 2020-08-25)
PROC: 0SRB0EZ Replacement of Left Hip Joint with Articulating Spacer, Open Approach (ICD-10-PCS; 2020-08-25)
PROC: 0SBB0ZZ Excision of Left Hip Joint, Open Approach (ICD-10-PCS; 2020-08-25)
DX: T84.52XA Infection and inflammatory reaction due to internal left hip prosthesis, initial encounter (principal); A41.01 Sepsis due to Methicillin susceptible Staphylococcus aureus; E11.9 Type 2 diabetes mellitus without complications; E66.01 Morbid (severe) obesity due to excess calories; Z68.35 Body mass index [BMI] 35.0-35.9, adult; B95.62 Methicillin resistant Staphylococcus aureus infection as the cause of diseases classified elsewhere; I10 Essential (primary) hypertension; F17.200 Nicotine dependence, unspecified, uncomplicated
CPT/HCPCS: 36415; 36569; 71045; 72170; 80048; 80053; 80202; 82948; 85025; 86850; 86900; 86920; 87071; 87075; 87186; 87205; 97139; C1713; C1776; J0171; J1100; J1170; J1885; J2001; J2250; J2405; J2710; J2795; J3010; J3370; J7030; J7040; J7050

== ENCOUNTER → 2020-11-22 | Day surgery (SDC) | payer BC ==
[2020-11-18 08:29] LABS: ANION GAP 14.2 mmol/L (8-16); CALCIUM 9.5 mg/dL (8.4-10.2); CREATININE, SERUM 0.87 mg/dL (0.72-1.25); POTASSIUM 4.2 mmol/L (3.5-5.1)
[~2020-11-22] MED LIST changes: +IOPAMIDOL 300MG/ML 50ML INFUS..BTL IV ONE
[2020-11-22 16:45] VITALS: BP 107/60
== END | disposition home or self-care (01) ==
LOC: OR 10:53
PROVIDERS: ATTEND Specialist
DX: Z47.32 Aftercare following explantation of hip joint prosthesis (principal); E11.9 Type 2 diabetes mellitus without complications; R00.1 Bradycardia, unspecified; F17.210 Nicotine dependence, cigarettes, uncomplicated; Z01.810 Encounter for preprocedural cardiovascular examination; Z01.812 Encounter for preprocedural laboratory examination; Z20.822 Contact with and (suspected) exposure to COVID-19; Z68.35 Body mass index [BMI] 35.0-35.9, adult
CPT/HCPCS: 20610; 36415; 77002; 80048; 87071; 87075; 87102; 87205; 87206; 93005; U0002; 76000

== ENCOUNTER 2020-12-07 06:31 | Inpatient (IN) | payer BC ==
[2020-12-03 15:20] LABS: BASOPHILS % 0.2 % (0.0-1.0); EOSINOPHILS # (AUTO) 0.1 (0.0-0.4); EOSINOPHILS % 1.7 % (0.0-6.0); HEMATOCRIT 36.5 % (38.2-49.6); HEMOGLOBIN 12.3 g/dL (14.0-18.0); LYMPHOCYTES # (AUTO) 1.3 (1.0-3.2); LYMPHOCYTES % 15.8 % (18.0-39.1); MEAN CORPUSCULAR HEMOGLOBIN 27.5 pg (28-32); MEAN CORPUSCULAR HGB CONC 33.7 g/dL (31-35); MEAN CORPUSCULAR VOLUME 81.7 fL (81-99); MONOCYTES # (AUTO) 0.6 (0.2-0.8); MONOCYTES % 7.8 % (4.4-11.3); NEUTROPHILS # (AUTO) 6.1 (2.1-6.9); PLATELET COUNT 243 x10e3/uL (140-360); RED BLOOD COUNT 4.47 x10e6/uL (4.3-5.7); RED CELL DISTRIBUTION WIDTH 15.4 % (11.7-14.4)
[~2020-12-07] VITALS: Ht 170.2 cm; Wt 102.1 kg
[2020-12-07] VITALS (8 sets, daily range): BP systolic 99–112; BP diastolic 66–74
[~2020-12-07 06:31] MED LIST changes: -IOPAMIDOL 300MG/ML 50ML INFUS..BTL IV ONE
[2020-12-07] MEDS ORDERED: SODIUM CHLORIDE 0.9% 500ML 500 ML ONE (06:38)
[2020-12-07] MEDS ORDERED: TRANEXAMIC ACID 1,000 MG/10 ML ML ONE (06:39)
[2020-12-07] MEDS ORDERED: Vancomycin IV 1,000 MG ONE (06:39)
[2020-12-07] MEDS ORDERED: IRON PO (06:40)
[2020-12-07] MEDS ORDERED: MULTI-VITAMIN1 EACH PO (06:40)
[2020-12-07] MEDS ORDERED: CELECOXIB 200 MG CAP ONE (06:57)
[2020-12-07] MEDS ORDERED: DEXAMETHASONE SOD PHOS 10 MG/1 ML VIAL ONE (06:57)
[2020-12-07] MEDS ORDERED: SODIUM CHLORIDE 0.9% 250ML 250 ML ONE (06:58)
[2020-12-07] MEDS ORDERED: GABAPENTIN 300 MG CAP ONE (06:58)
[2020-12-07] MEDS ORDERED: SODIUM CHLORIDE 0.9% 50ML 100 ML ONE (06:58)
[2020-12-07] MEDS ORDERED: Vancomycin IV 1 GM VIAL ONE (06:59)
[2020-12-07] MEDS ORDERED: ROPIVACAINE 246.25 MG, EPINEPHRINE HCL 1:1000 1ML 0.5 MG, CLONIDINE HCL 0.08 MG, KETORO... INJ ONE ×5 (08:00)
[2020-12-07] MEDS ORDERED: HYDROGEN PEROXIDE 120 ML BTL ONE (09:28)
[2020-12-07] MEDS ORDERED: KETOROLAC TROMETHAMINE 30 MG/ML VIAL IV PRN (10:30)
[2020-12-07] MEDS ORDERED: ACETAMINOPHEN 650 MG SUPP PR PRN (10:30)
[2020-12-07] MEDS ORDERED: ONDANSETRON HCL INJ 2MG/ML 2ML 2 MG/ML VIAL IV PRN (10:30)
[2020-12-07] MEDS ORDERED: HYDROCODONE/APAP 7.5MG-325MG 1 EA TAB PO PRN (10:30)
[2020-12-07] MEDS ORDERED: DIPHENHYDRAMINE HCL INJ 50 MG/ML VIAL IV PRN (10:30)
[2020-12-07] MEDS ORDERED: DOCUSATE SODIUM 100 MG CAP PO PRN (10:30)
[2020-12-07] MEDS ORDERED: MEPERIDINE HCL INJ 25 MG/ML VIAL ONE (11:01)
[2020-12-07] MEDS ORDERED: HYDROMORPHONE 1MG/1ML INJ ONE (11:02)
[2020-12-07] MEDS: Cefazolin 1 GM in SODIUM CHLORIDE 0.9% 50ML 50 ML IV SCH ×2 (14:14→21:00)
[2020-12-07] MEDS: SODIUM CHLORIDE 0.9% 1000ML 1,000 ML IV SCH ×2 (14:14→20:30)
[2020-12-07] MEDS: Vancomycin IV 1 GM in SODIUM CHLORIDE 0.9% 250ML 250 ML IV SCH (17:14)
[2020-12-07] MEDS: ASPIRIN 325 MG TAB PO SCH (17:14)
[2020-12-07] MEDS: CELECOXIB 100 MG CAP PO SCH (17:14)
[2020-12-07] MEDS ORDERED: ZOLPIDEM TARTRATE 5 MG TAB PO PRN (21:00)
[2020-12-08] VITALS (7 sets, daily range): BP systolic 96–122; BP diastolic 55–81
[2020-12-08] MEDS: Cefazolin 1 GM in SODIUM CHLORIDE 0.9% 50ML 50 ML IV SCH (05:33)
[2020-12-08] MEDS: HYDROCODONE/APAP 5MG-325MG TAB PO PRN ×2 (05:50→21:08)
[2020-12-08 05:51] LABS: HEMATOCRIT 25.8 % (38.2-49.6); HEMOGLOBIN 8.3 g/dL (14.0-18.0)
[2020-12-08] MEDS: SODIUM CHLORIDE 0.9% 1000ML 1,000 ML IV SCH ×2 (06:30→17:13)
[2020-12-08] MEDS: Vancomycin IV 1 GM in SODIUM CHLORIDE 0.9% 250ML 250 ML IV SCH (06:47)
[2020-12-08] MEDS: ASPIRIN 325 MG TAB PO SCH ×2 (08:26→17:13)
[2020-12-08] MEDS: CELECOXIB 100 MG CAP PO SCH ×2 (08:26→17:13)
[2020-12-08] MEDS ORDERED: ACETAMINOPHEN 1000 MG/100 ML IV PRN (10:30)
[2020-12-08 12:29] LABS: ANION GAP 12.4 mmol/L (8-16); CALCIUM 8.3 mg/dL (8.4-10.2); CREATININE, SERUM 0.74 mg/dL (0.72-1.25); POTASSIUM 3.4 mmol/L (3.5-5.1)
[2020-12-08] MEDS ORDERED: POTASSIUM CHLORIDE 20 MEQ TAB CR PO ONE (14:00)
[2020-12-09] VITALS: BP 99/60
[2020-12-09] MEDS: SODIUM CHLORIDE 0.9% 1000ML 1,000 ML IV SCH (02:30)
[2020-12-09 04:00] VITALS: BP 118/71
[2020-12-09 05:45] LABS: HEMATOCRIT 25.5 % (38.2-49.6); HEMOGLOBIN 8.3 g/dL (14.0-18.0)
[2020-12-09 08:15] VITALS: BP 98/71
[2020-12-09] MEDS: CELECOXIB 100 MG CAP PO SCH (10:15)
[2020-12-09] MEDS: ASPIRIN 325 MG TAB PO SCH (10:15)
[2020-12-09] MEDS ORDERED: ONDANSETRON HCL 4 MG ORAL DISINTEGRATING TAB PO PRN (10:30)
== END 2020-12-09 11:07 | disposition home or self-care (01) | DRG 468 ==
LOC: OR 06:31 → PACU V 10:29 → MED/SURG 12:25
PROVIDERS: ADMIT Specialist; ATTEND Specialist
PROC: 0SPB0JZ Removal of Synthetic Substitute from Left Hip Joint, Open Approach (ICD-10-PCS; 2020-12-07)
PROC: 0SRB069 Replacement of Left Hip Joint with Oxidized Zirconium on Polyethylene Synthetic Substitute, Cemented, Open Approach (ICD-10-PCS; principal; 2020-12-07 08:00)
DX: T84.52XA Infection and inflammatory reaction due to internal left hip prosthesis, initial encounter (principal); Z89.622 Acquired absence of left hip joint; E87.6 Hypokalemia; E66.01 Morbid (severe) obesity due to excess calories; Z68.35 Body mass index [BMI] 35.0-35.9, adult; Z20.822 Contact with and (suspected) exposure to COVID-19; Y81.2 Prosthetic and other implants, materials and accessory general- and plastic-surgery devices associated with adverse incidents; I10 Essential (primary) hypertension
CPT/HCPCS: 36415; 72170; 80048; 85014; 85018; 85025; 86850; 86870; 86880; 86900; 86905; 86920; 87071; 87075; 87205; 97139; 99001; C1176; C1713; C1776; J0171; J0690; J1100; J1170; J1885; J2175; J2795; J3370; J7040; J7050; U0002